=== PATIENT | female | born 1950 | race Caucasian/White ===

== ENCOUNTER 2018-12-21 14:49 | Inpatient (IN) | payer MEDICARE, BC ==
[~2018-12-21] VITALS: Ht 162.6 cm; Wt 74.5 kg
[2018-12-30] VITALS (10 sets, daily range): BP systolic 94–139; BP diastolic 50–74; PULSE 64–81; TEMP 97.8–98.5
[2018-12-30] MEDS ORDERED: SYNTHROID0.075 MG/T PO (09:06)
[2018-12-30] MEDS ORDERED: CIPRO 250MG TA250 MG PO (09:06)
[2018-12-30] MEDS ORDERED: NATURE'S BLE1000 MCG PO (09:07)
[2018-12-30] MEDS ORDERED: CELEBREX 200MG200 MG PO (09:07)
[2018-12-30] MEDS ORDERED: ZOLOFT 100MG100 MG PO (09:08)
[2018-12-30] MEDS ORDERED: B-121000 MCG PO (09:08)
[2018-12-30] MEDS ORDERED: OS-CAL 500 + D1 TAB PO (09:09)
[2018-12-30] MEDS ORDERED: IRON18 MG1 PO (09:09)
[2018-12-31 01:10] VITALS: BP 111/63; PULSE 69; TEMP 97.9
[2018-12-31 05:23] VITALS: BP 100/47; PULSE 73; TEMP 98.7
[2018-12-31] MEDS ORDERED: ASPI325T6 PO (07:26)
[2018-12-31] MEDS ORDERED: NORCO 325 MG-7.1 TAB PO (07:27)
[2018-12-31] MEDS ORDERED: ULTRAM 50MG TAB50 MG PO (07:29)
[2018-12-31 07:41] LABS: HEMOGLOBIN 10.9 g/dl (12.5-16.0)
[2018-12-31 07:45] LABS: HEMATOCRIT 34.5 % (37.0-47.0)
[2018-12-31 07:55] VITALS: BP 95/53; PULSE 96; TEMP 98.2
[2018-12-31 12:33] VITALS: BP 97/52; PULSE 74; TEMP 98
== END 2018-12-31 14:40 | disposition home or self-care (01) | DRG 470 ==
LOC: JCC 12-30 08:23
PROVIDERS: ADMIT Orthopaedic Surgery
PROC: 0SRD0J9 Replacement of Left Knee Joint with Synthetic Substitute, Cemented, Open Approach (ICD-10-PCS; principal; 2018-12-30 14:00)
DX: M17.12 Unilateral primary osteoarthritis, left knee (principal); M81.0 Age-related osteoporosis without current pathological fracture; F32.9 Major depressive disorder, single episode, unspecified; Z98.84 Bariatric surgery status; Z98.51 Tubal ligation status; Z90.710 Acquired absence of both cervix and uterus; Z87.891 Personal history of nicotine dependence
CPT/HCPCS: A4314; A9284; C1776; J0690; J1885; J2250; J2370; J2405; J2704; J3010; J7050; J7120